=== PATIENT | male | born 1975 | race Caucasian/White ===

== ENCOUNTER 2019-10-27 17:59 | Emergency (ER) | payer MEDICAID ==
[~2019-10-27] VITALS: Ht 180.3 cm; Wt 72.6 kg
--- NOTE | 2019-10-27 18:17 | NUR ---
"My Right Leg is red and swollen x couple days I think its infected" "also been having R shoulder pain", to ER bed 10, hooked to monitor, changed to hosp gown, awaiting MD ryan.
--- NOTE | 2019-10-27 18:56 | NUR ---
Dr Estes at bedside
--- NOTE | 2019-10-27 19:20 | NUR ---
Patient given written and verbal discharge instructions. Patient verbalizes understanding of instructions. Patient is ambulatory with steady gait. Refuses offer of retirement placement. Patient given list of available shelters in surrounding area. Patient in proper clothing upon discharge. All belongings returned to patient. Name band removed
[2019-10-27 19:22] VITALS: BP 139/86
== END 2019-10-27 19:23 | disposition home or self-care (01) ==
LOC: ER 18:03
DX: L03.115 Cellulitis of right lower limb (principal); Z59.0 Homelessness